=== PATIENT | male | born 1975 | race Caucasian/White ===

== ENCOUNTER 2021-06-24 08:33 | Emergency (ER) | payer OTHER, SELFPAY ==
[2021-06-24 08:54] VITALS: BP 140/86; PULSE 77; RESP 18; TEMP 36.4; O2SAT 97; BMI 34.0
[2021-06-24 09:19] VITALS: BP 140/92
[2021-06-24 09:20] VITALS: PULSE 73; O2SAT 98
--- NOTE | 2021-06-24 09:44 | ED.DENTAL ---
HPI - Dental/Oral General Chief complaint: Dental/Oral Stated complaint: toothache jaw down throat swollen lt side Time Seen by Provider: 06/24/21 09:43 Source: patient Mode of arrival: Ambulatory History of Present Illness HPI Narrative: Patient is a 45-year-old history of chronic back pain presenting today with dental pain. He said he had his feillings removed 3 weeks ago now having increasing pain and numbness same left lower jaw. No swelling. It hurts to touch it. Taking Tylenol and ibuprofen. He has an appointment with dentist in 5 days. No fevers or chills. Related Data Previous Rx's Medication Instructions Recorded amoxicillin 500 mg capsule 500 mg PO BID #14 cap 06/24/21 Allergies Allergy/AdvReac Type Severity Reaction Status Date / Time No Known Drug Allergies Allergy Verified 06/24/21 08:53 Review of Systems Review of Systems Narrative: GENERAL: Denies chills,fever HEENT: See HPI RESPIRATORY: Denies dyspnea, cough, wheezing CARDIOVASCULAR: Denies chest pain, palpitations GASTROINTESTINAL: Denies nausea, vomiting MUSCULOSKELETAL: Denies extremity pain, injury SKIN: No rash, no laceration, no pruritus NEUROLOGIC: Denies weakness, dizziness, headache, numbness 8 point review of systems is negative except for those stated above and HPI Patient History Social History Smoking Status: Never smoker Smoking Status: Never smoker Substance Use Type: does not use Exam Initial Vital Signs Initial Vital Signs: Vital Signs Temperature 97.5 F L 06/24/21 08:54 Pulse Rate 77 06/24/21 08:54 Respiratory Rate 18 06/24/21 08:54 Blood Pressure 140/86 06/24/21 08:54 Pulse Oximetry 97 06/24/21 08:54 GENERAL: Well-appearing, well-nourished and in no acute distress. TOOTH: Dental caries noted left lower, dental abscess. No facial swelling no erythema. CARDIOVASCULAR: peripheral pulses in tact, cap refill <2 sec RESPIRATORY: No respiratory distress, speaks in full sentences without difficulty EXTREMITIES: Normal range of motion, no clubbing or edema. Neurovascularly intact NEUROLOGICAL: Cranial nerves II through XII grossly intact. Normal gait and speech. SKIN: Warm, dry, no petechiae, no rashes or lesions. Course Vital Signs Vital signs: Vital Signs - 8 hr 06/24/21 08:54 06/24/21 09:19 06/24/21 09:20 Temperature 97.5 F L Pulse Rate 77 73 Respiratory Rate 18 Blood Pressure 140/86 140/92 H Pulse Oximetry 97 98 MDM - Dental/Oral MDM Narrative Medical decision making narrative: Patient is having increased dental pain after dental procedure 3 weeks ago. No sign of significant infection at this time but will go ahead and start him on antibiotics. He says he is allergic to penicillin but he says he always says that so that he can get azithromycin. He is agreeable to take amoxicillin today. He denies any anaphylaxis reactions. Discharge Plan Departure Patient Disposition: Home Clinical Impression: Toothache Instructions: DI for Dental Pain Activity Restrictions/Additional Instructions: *You have been diagnosed with dental pain *What to do: At this time I recommend you keep your appointment with your dentist. Hopefully antibiotics start to help. *Continue to take medications as directed Amoxicillin 500 mg twice a day for 7 days *Follow up with your primary care provider in 2-3 days or call [phone] *Return to ER if you should have increasing facial swelling neck swelling redness, tongue pain or any new, worsening or concerning symptoms Prescriptions: New amoxicillin 500 mg capsule 500 mg PO BID Qty: 14 0RF
== END 2021-06-24 09:58 | disposition home or self-care (01) ==
PROVIDERS: Emergency Provider Emergency Medicine
DX: K08.89 Other specified disorders of teeth and supporting structures (principal)
CPT/HCPCS: 99281

== ENCOUNTER 2022-12-18 12:57 | Day surgery (SDC) | payer OTHER, SELFPAY ==
[2022-12-17 13:50] VITALS: BMI 35.1
--- NOTE | 2022-12-18 | DI.RAD.S_ITS ---
PROCEDURE: XR ANKLE RT 2V INDICATIONS: ORIF RIGHT ANKLE TECHNIQUE: 2 intraoperative fluoroscopic views of the ankle were acquired. COMPARISON: None. FINDINGS: Bones: Intraoperative fluoroscopic images demonstrate syndesmotic fixation and fixation of the distal fibula. IMPRESSION: Intraoperative views of right ankle ORIF. Dictated by: Isi Bailon M.D. on 12/18/2022 at 16:13 Approved by: Isi Bailon M.D. on 12/18/2022 at 16:14
[2022-12-18 13:24] VITALS: BP 130/91; PULSE 100; RESP 16; TEMP 37; O2SAT 97; BMI 35.1
[2022-12-18] MEDS: LACTATED RINGERS 1,000 ML 150 ML IV (13:39)
--- NOTE | 2022-12-18 13:46 | PM.PREOP ---
Pre-operative Note Interval Note History & Physical reviewed/Exam performed by Physician: Yes Changes to H&P: No
[2022-12-18] MEDS: TRANEXAMIC ACID 1,000 MG VIAL 1000 MG INH (14:05)
[2022-12-18] MEDS: CEFAZOLIN 2 GM/100 ML PREMIX 100 ML IV (14:12)
[2022-12-18] MEDS: ACETAMINOPHEN IV 1,000 MG/100 ML VIAL 400 MG IV (14:20)
--- NOTE | 2022-12-18 14:31 | SUR.OPER ---
Supine on padded OR bed, head on pillow, arms secured on padded arm boards at <90 degrees abduction, legs uncrossed, right leg on sterile bump and in control of surgeon. Left leg taped down.
[2022-12-18] MEDS: BUPIVACAINE 0.25% (PF) 30 ML, EPINEPHrine 0.15 MG INJ (14:59)
[2022-12-18 15:30] VITALS: BP 126/82; PULSE 91; RESP 12; TEMP 36.7; O2SAT 95
[2022-12-18 15:35] VITALS: BP 117/68; PULSE 94; RESP 14; TEMP 36.7; O2SAT 94
[2022-12-18 15:40] VITALS: BP 105/75; PULSE 101; RESP 12; TEMP 36.6; O2SAT 94
[2022-12-18 15:48] VITALS: BP 138/86; PULSE 102; RESP 11; O2SAT 99
--- NOTE | 2022-12-18 15:50 | PM.OP.1 ---
Operative Date/Time/Diagnoses Date of procedure: 12/18/22 Time of procedure: 15:50 Pre-op diagnosis: 1. Right fibula fracture 2. Right ankle syndesmosis disruption Post-op diagnosis: same Procedure & Clinicians Procedure: Operative fixation right distal fibula and syndesmosis Same procedure as scheduled: Yes Indications: Indications: This is a 47-year-old male who sustained a fall resulting in a bimalleolar equivalent ankle fracture went hunting. In order to restore stability and allow early mobilization and weight-bearing as well as ensure decreased risk of nonunion and malunion we discussed operative fixation. The risks and benefits of surgery including the risk of infection, damage to internal structures, bleeding, failure of hardware, need for revision surgery and ankle arthritis as well as the risk of anesthesia were discussed with the patient. The patient agreed with these risks and wished to go forward with surgery. Surgeon: Ned Smith Click Yes if Unassisted: Yes Anesthesia Type: General Operative Notes Findings: oblique unstable bimalleolar equivalent fracture with medial clear space widening Closure Type: primary Specimen(s): none sent Prosthetic devices, grafts, tissues, transplants, or devices: Eight hole 1/3 tubular plate Robertson and Nephew Invisiknot suture Two separate 2.7 mm lag screws Estimated Blood Loss (mL): 10 Blood products transfused: none Tourniquet time (min): 45 Procedure in detail: Procedure: The patient was met in the preoperative holding area and we again discussed the risks and benefits of surgery. My initials were marked on the correct right lower extremity. The patient was brought back to the operating room and transferred to the operating table. Smooth induction of anesthesia was performed. A time-out was then performed confirming the correct operative extremity with my initials. A tourniquet was applied to the upper thigh. Standard sterile prep was done with chlorhexidine. Appropriate dry time was observed. An Esmarch was used and the tourniquet was inflated to 250 mmHg. A standard lateral approach to the fibula was made using a 10 blade. We looked for the sural nerve at the proximal portion of the incision and this was protected throughout the case. Dissection was carried down to the bone and the fracture was encountered. This was a long oblique fracture at the level of the plafond. The fracture was irrigated and cleaned using a curette. Fracture was reduced and held with 2 pointed reduction clamps. Two separate 2.75 mm lag screws were placed by technique. A 1/3 tubular, 8 hole plate was then used to span the fracture. Final fluoroscopy confirmed screw length and plate position as well as fracture reduction. Stress radiograph was performed at this time which demonstrated widening of the medial clear space. For this reason a syndesmotic suture fixation was chosen. Four cortices were drilled and a button was flipped on the medial cortex of the tibia. This was then tensioned on the fibula well a reduction maneuver was held. This was noted to be in good position on x-ray in the medial clear space was closed down. Wounds were closed with 3-0 vicryl and 2-0 nylon and dressed with Xeroform, 4x4s cast padding and then placed into a well-padded splint the patient awoke from anesthesia and was transported to the postoperative recovery unit without any issues Post-operative Condition: stable Disposition: PACU Plan for aftercare: Postop: Touchdown weight-bearing for 6 weeks. He will be transitioned from his splint into a walking boot at the 1st postoperative visit. Leave the splint on for the 1st 2 weeks.
[2022-12-18] MEDS: OXYCODONE IR 5 MG TABLET PO (15:53)
[2022-12-18 15:54] VITALS: BP 132/91; PULSE 91; RESP 11; O2SAT 97
== END 2022-12-18 16:20 | disposition home or self-care (01) ==
PROVIDERS: PCP Nurse Practitioner Primary Care; Referring Provider Orthopaedic Surgery; Visit Provider Orthopaedic Surgery
PROC: 0SSF04Z Reposition Right Ankle Joint with Internal Fixation Device, Open Approach (ICD-10-PCS; CPT 27792; principal; 2022-12-18 14:15)
DX: S82.61XA Displaced fracture of lateral malleolus of right fibula, initial encounter for closed fracture (principal); S93.431A Sprain of tibiofibular ligament of right ankle, initial encounter; W18.30XA Fall on same level, unspecified, initial encounter; Y93.89 Activity, other specified
CPT/HCPCS: 27792; 27829; 73600; 76000; J0131; J0171; J0690; J1100; J1170; J1885; J2405; J2704

== ENCOUNTER 2023-12-04 08:53 | Emergency (ER) | payer OTHER, SELFPAY ==
[2023-12-04 09:05] VITALS: BP 144/85; PULSE 93; RESP 18; TEMP 36.7; O2SAT 99; BMI 33.1
--- NOTE | 2023-12-04 09:07 | DI.RAD.S_ITS ---
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 COMPARISON: None. FINDINGS: Bones: No fractures or dislocations. No suspicious bony lesions. Soft tissues: No suspicious soft tissue calcifications. Skin laceration, radial aspect of the 3rd digit centered at the proximal shaft of the middle phalanx. No radiopaque foreign body. IMPRESSION: Skin laceration. No acute bony abnormality. Dictated by: Willian Quinones M.D. on 12/04/2023 at 9:27 Approved by: Willian Quinones M.D. on 12/04/2023 at 9:36
[2023-12-04] MEDS: IBUPROFEN 400 MG TABLET PO (10:54)
[2023-12-04] MEDS: TET,DIPH,PERTUSS(ACELL),VAC/PF 0.5 ML SYRINGE IM (10:54)
[2023-12-04] MEDS: OXYCODONE/ACETAMINOPHEN 5/325 TABLET 1 TAB PO (10:54)
--- NOTE | 2023-12-04 11:03 | ED.WOUNDLAC ---
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 Bleeding has been controlled. Related Data Home Medications Medication Instructions Recorded Confirmed amlodipine 5 mg tablet 5 mg PO DAILY 12/18/22 12/18/22 duloxetine 20 mg PO DAILY 12/18/22 12/18/22 ibuprofen 800 mg PO DAILY PRN Pain, Moderate 12/18/22 12/18/22 methocarbamol 500 mg PO PRN PRN Pain, Moderate 12/18/22 12/18/22 omeprazole 20 mg PO DAILY 12/18/22 12/18/22 sertraline 50 mg PO DAILY 12/18/22 12/18/22 terbinafine 250 mg PO DAILY 12/18/22 12/18/22 trazodone 50 mg PO PRN PRN Sleep 12/18/22 12/18/22 Previous Rx's Medication Instructions Recorded hydrocodone 5 mg-acetaminophen 325 1 tab PO Q6H PRN pain #20 tabs 12/18/22 mg tablet ibuprofen 600 mg tablet 600 mg PO Q6H PRN pain #60 tabs 12/18/22 ondansetron HCl 4 mg tablet 4 mg PO Q8H PRN nausea and 12/18/22 vomiting #10 tabs Allergies Allergy/AdvReac Type Severity Reaction Status Date / Time Penicillins Allergy Verified 12/17/22 13:52 Review of Systems Review of Systems Narrative: Pertinent positive and negative findings as per HPI Patient History Medical History Closed displaced fracture of lateral malleolus of right fibula DJD (degenerative joint disease) Arthritis Spinal stenosis Migraines Depression HTN (hypertension) HLD (hyperlipidemia) Sleep apnea Social History household members: spouse Smoking Status: Former smoker alcohol intake: current Smoking Status: Former smoker alcohol intake frequency: holidays/special occasions only Substance Use Type: does not use Exam Initial Vital Signs Initial Vital Signs: Vital Signs Temperature 98.1 F 12/04/23 09:05 Pulse Rate 93 H 12/04/23 09:05 Respiratory Rate 18 12/04/23 09:05 Blood Pressure 144/85 H 12/04/23 09:05 Pulse Oximetry 99 12/04/23 09:05 Oxygen Delivery Method Room Air 12/04/23 09:05 General: Alert appropriate in no acute distress Respiratory: Able to speak in full sentences, no obvious respiratory distress Skin: No obvious rashes, warm and dry Neurologic: Grossly intact no obvious asymmetries or abnormalities Psych: appropriate insight and affect, cooperative Extremity: Right hand is examined. The wound is a flap like wound involving almost the entire dorsum of the middle phalanx. It is to the bone on the thenar side. I do not actually see the ends of the tendon but I assume the medial dorsal tendon is lacerated. He has full sensation distally. With testing both flexion and extension of the finger prior to repair he actually has good strength Procedures Laceration Repair Right middle finger: Site: hand Side (If applicable): right Size (cm): 5 Description: flap and contaminated Depth: involves tendon Local Anesthetic: lidocaine 1% Amount of anesthesia used (mL): 5 (Digital block) Pre-repair: wound explored, irrigated extensively and deep structures intact (Bone is visible and intact. Did not see edges of the radial side tendon) Skin layer closed with: nylon Skin layer suture size: 4-0 Number of sutures: 9 Technique: simple, interrupted Course Orders Ordered: ED Orders 12/04/23 09:07 XR finger RT min 2V Stat Discontinued Medications Diphtheria/Tetanus/Acell Pertussis (Tet,Diph,Pertuss(Acell),Vac/Pf 0.5 Ml Syringe) 0.5 ml IM .ONCE ONE Stop: 12/04/23 10:11 Last Admin: 12/04/23 10:54 Dose: 0.5 ml Documented By: JENNYFER Ibuprofen (Ibuprofen 400 Mg Tablet) 400 mg PO NOW ONE Stop: 12/04/23 10:11 Last Admin: 12/04/23 10:54 Dose: 400 mg Documented By: JENNYFER Oxycodone/Acetaminophen (Oxycodone/Acetaminophen 5/325 Tablet) 1 tab PO NOW ONE Stop: 12/04/23 10:11 Last Admin: 12/04/23 10:54 Dose: 1 tab Documented By: JENNYFER Vital Signs Vital signs: Vital Signs - 8 hr 12/04/23 09:05 Temperature 98.1 F Pulse Rate 93 H Respiratory Rate 18 Blood Pressure 144/85 H Pulse Oximetry 99 Oxygen Delivery Method Room Air MDM - Wound/Laceration MDM Narrative Medical decision making narrative: CC: Right index finger laceration Complicating co-morbidities: Hypertension, multiple chronic orthopedic issues Data collected from: patient Differential considered: Simple laceration, tendon involvement, nerve involvement, underlying fracture Exam documented above, pertinent findings include: Deep flap like laceration to the bone not including the bone presumably includes a tendon but I do not see the edges of the tendon. Prior to anesthesia he actually has strong extension and flexion of the finger with full sensation through the entire tip of the finger. Capillary refill at the tip of the finger is appropriate Imaging studies independently reviewed: Finger x-ray show no involvement Treatments: Laceration is repaired, antibiotics will be initiated Discussion: 48-year-old gentleman with a flap like laceration to the dorsal surface right middle finger. He is left-handed. He appears to be neurovascularly intact. I am concerned that there is tendon involvement but strength does seem to be maintained. Sutures were placed with instructions to start antibiotics to prevent infection. Clearly reviewed signs and symptoms of infection including complications such as amputation should he not follow through with recommendations. Discussed ibuprofen and Tylenol for pain control. Recommended orthopedic/hand surgeon follow up within a week to evaluate for need for tendon revision and wound healing. Recommended 10 days for sutures to remain in place. Questions answered he is safe for discharge Discharge Plan Departure Patient Disposition: Home Clinical Impression: Laceration Instructions: DI for Laceration Repair Activity Restrictions/Additional Instructions: Thank you for coming in today The wound was to the bone I am concerned that 1 of the tendons was cut. Fortunately he still had good strength in the finger prior to being anesthetized. The wound was thoroughly cleaned prior to closing. It came together nicely. I would recommend sutures come out on or about December 13 Because the bone is exposed but not actually involved, I am going to recommend 7 days of oral antibiotics. Please make sure you are watching for signs or symptoms of infection including redness and pain. It is vital that you have that checked out. Finger infections can get quite bad and end up with amputation another complications quite quickly. Please call [facility] at [phone]. Explain that you are in the emergency department you have a finger laceration with tendon involvement and need consultation for the injury. If you find that you are getting worse or develop any new symptoms, please feel free to return to the emergency department for further evaluation. Prescriptions: No Action amlodipine 5 mg Tablet 5 mg PO DAILY duloxetine 20 mg PO DAILY ibuprofen 800 mg PO DAILY PRN (Reason: Pain, Moderate) methocarbamol 500 mg PO PRN PRN (Reason: Pain, Moderate) omeprazole 20 mg PO DAILY sertraline 50 mg PO DAILY terbinafine 250 mg PO DAILY trazodone 50 mg PO PRN PRN (Reason: Sleep) hydrocodone-acetaminophen 5-325 mg tablet 1 tab PO Q6H PRN (Reason: pain) Qty: 20 0RF ondansetron HCl 4 mg tablet 4 mg PO Q8H PRN (Reason: nausea and vomiting) Qty: 10 0RF ibuprofen 600 mg tablet 600 mg PO Q6H PRN (Reason: pain) Qty: 60 0RF Referrals: Anna Platt ARNP [Primary Care Provider] - Stand Alone Forms: Patient Portal/API
[2023-12-04] MEDS: BACITRACIN OINT 0.9 GM PCKT 1 APPLIC TOP (11:44)
[2023-12-04 12:18] VITALS: BP 142/82; PULSE 84; RESP 16; O2SAT 95
--- NOTE | 2023-12-04 12:22 | PC.NURSE ---
right radial pulse good and strong
== END 2023-12-04 12:27 | disposition home or self-care (01) ==
PROVIDERS: Emergency Provider Emergency Medicine; PCP Nurse Practitioner Primary Care
DX: S61.212A Laceration without foreign body of right middle finger without damage to nail, initial encounter (principal); W29.8XXA Contact with other powered hand tools and household machinery, initial encounter; Z23 Encounter for immunization
CPT/HCPCS: 12002; 73140; 90471; 99283; 99284; 90715

== ENCOUNTER → 2024-02-05 08:49 | Outpatient (CLI) | payer OTHER, SELFPAY ==
--- NOTE | 2024-02-05 08:51 | DI.MRI.S_ITS ---
PROCEDURE: MR ELBOW RT WO CON INDICATIONS: 3MO OF LATERAL EPICONDYLE PAIN TECHNIQUE: Noncontrast coronal proton density fast spin echo and T2 fast spin echo with fat saturation, axial and sagittal T1 spin echo and T2 fast spin echo with fat saturation through the elbow. COMPARISON: None. FINDINGS: Image quality: Fair; motion artifact on some sequences limits evaluation. Bones: The bone marrow signal is normal. There is no evidence of fracture or osteochondral lesion. There is mild radial offset of the radial head at the radiocapitellar joint in association with a 1.3 x 1.1 cm ganglion cyst at the antecubital fossa (7; 4/17). The neck of this ganglion cyst seems to be extending from the inferior margin of the quadrate ligament near the proximal radioulnar joint (7/23; 5/16). Joints: No elbow joint effusion is present. Bursae: There is no fluid within the olecranon and bicipitoradial bursae. Ligaments: There is mild intermediate signal at the medial humeral epicondylar attachments of the anterior band of the ulnar collateral ligament and lateral ulnar collateral ligament (/-19). The radial collateral ligament is normal. Normal proximal radioulnar alignment implies an intact annular ligament. Tendons: There is mild intermediate signal of the common flexor-pronator tendon origin at the medial humeral epicondyle. The common extensor-supinator tendon origin at the lateral humeral epicondyle is thickened and intermediate in signal with an obliquely oriented near full width, partial thickness tear at the origin (5/17; 7/13). Subcutaneous edema is present adjacent to the common extensor tendon origin. The distal biceps tendon, brachialis tendon and triceps tendon are normal. Nerves: The ulnar, radial, and median nerves appear normal in size and signal. Musculature: Muscle bulk is preserved with no evidence of denervation. IMPRESSION: 1. High-grade tear of the common extensor-supinator tendon origin at the lateral humeral epicondyle, with superimposed tendinosis and adjacent subcutaneous edema. 2. Mild strain of the common flexor-pronator tendon origin. 3. Mild sprains of the anterior band of the ulnar lateral ulnar collateral ligaments. 4. Possible partial tear of the quadrate ligament, with mild radiocapitellar joint incongruity and a 1.3 cm ganglion cyst at the antecubital fossa. Dictated by: Demar Baca M.D. on 02/09/2024 at 10:24 Approved by: Demar Baca M.D. on 02/09/2024 at 10:38
== END ==
PROVIDERS: PCP Nurse Practitioner Primary Care; Referring Provider Physical Medicine & Rehabilitation Sports Medicine; Visit Provider Physical Medicine & Rehabilitation Sports Medicine
DX: M77.11 Lateral epicondylitis, right elbow (principal); S46.811A Strain of other muscles, fascia and tendons at shoulder and upper arm level, right arm, initial encounter; S53.441A Ulnar collateral ligament sprain of right elbow, initial encounter; R60.0 Localized edema
CPT/HCPCS: 73221